=== PATIENT | male | born 1975 | race Caucasian/White ===

== ENCOUNTER 2021-12-24 11:10 | Emergency (ER) | payer BC, OTHER ==
[2021-12-24] MEDS ORDERED: Norflex 60 MG/2 ML IM ONE (11:45)
[2021-12-24] MEDS ORDERED: TORAdol 30 mg Injection IM ONE (11:45)
[2021-12-24] MEDS ORDERED: TORAdol 30 mg Injection ONE (11:50)
[2021-12-24] MEDS ORDERED: Norflex 60 MG/2 ML ONE (11:50)
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
[2021-12-24 12:20] VITALS: BP 155/85; PULSE 67; O2SAT 99
[2021-12-24 13:09] LABS: Appearance CLEAR (CLEAR); Bilirubin NEGATIVE (NEGATIVE); Dipstick done @ ? MAIN LAB; Glucose NEGATIVE (NEGATIVE); Ketones NEGATIVE (NEGATIVE); Nitrite NEGATIVE (NEGATIVE); Protein,Urine Dip NEGATIVE (Negative); RBC NEGATIVE Ery/ul (0-5); Specific Gravity 1.025 (1.005-1.025); Urobilinogen 0.2 mg/dL (0-1)
--- NOTE | 2021-12-24 18:57 | XRAY ---
Indication: Left flank pain. Multiple contiguous axial images obtained through the abdomen and pelvis without contrast using renal stone protocol. Comparison: August 04, 2009 Lung bases again demonstrates small left base calcified granuloma. No infiltrate or effusion. Heart not enlarged. Incidental left infrahilar calcified node. Again nonobstructing micro-calculus in each kidney, largest left mid kidney measuring 4 mm. Stomach is distended with food/fluid. Noncontrasted stomach and bowel loops nonobstructed mild diffuse scatter colonic fecal debris throughout. No free fluid/air. Remaining liver, gallbladder, pancreas, spleen, adrenal glands, kidneys, ureters, bladder, and aorta are unremarkable for noncontrast exam. Osseous structures intact. No ventral or inguinal hernias. Impression: 1. Nonobstructing micro-calculus bilaterally. 2. Incidental mild diffuse fecal stasis and old granulomatous disease. 3. Remaining CT abdomen/pelvis without contrast exam is negative. Comment: Preliminary interpretation made by [facility]. No critical discrepancy.
== END 2021-12-24 13:25 | disposition home or self-care (01) ==
LOC: ED 11:10
DX: S39.012A Strain of muscle, fascia and tendon of lower back, initial encounter (principal); X50.0XXA Overexertion from strenuous movement or load, initial encounter
CPT/HCPCS: 74176; 81015; 96372; 99284; J1885; J2360

== ENCOUNTER 2024-05-28 10:05 | Day surgery (SDC) | payer BC ==
[2024-05-28] MEDS: Lactated Ringers 1,000 ML IV SCH (10:00)
[2024-05-28] MEDS ORDERED: Lactated Ringers 1,000 ML IV ONE (10:20)
[2024-05-28 10:26] VITALS: O2SAT 96
[2024-05-28] MEDS ORDERED: Xylocaine-Mpf 2% 5 Ml Vial ONE (14:03)
[2024-05-28] MEDS ORDERED: Versed 2 MG/2 ML Injection ONE (14:03)
[2024-05-28] MEDS ORDERED: DIPRIVAN 200 MG/20 ML IV ONE (14:03)
[2024-05-28 14:41] VITALS: RESP 16; TEMP 97.7
[2024-05-28 14:46] VITALS: BP 102/62; PULSE 62
--- NOTE | 2024-05-29 08:54 | OP ---
SURGERY DATE/TIME: 05/28/2024 1406 - 1412 PREOPERATIVE DIAGNOSIS: Heartburn. POSTOPERATIVE DIAGNOSES: 1) Duodenitis. 2) Esophagitis. 3) Minimal gastritis. PROCEDURE: Esophagogastroduodenoscopy with biopsy. SURGEON: Emiliano Sams MD ANESTHESIA: IV anesthesia. PATIENT CONDITION: Stable. COMPLICATIONS: None. SPECIMENS: 1) Duodenum biopsy. 2) Antrum for H pylori biopsy. 3) Distal esophagus biopsy. INDICATIONS: Patient is a 48-year-old male who presents with symptoms of heartburn despite PPI. Discussion was had with the patient, and he elects to proceed with endoscopy. FINDINGS: 1) Mild erythematous duodenitis. 2) Minimal erythema in the stomach and esophagus with 2 folds of esophagitis. DESCRIPTION OF PROCEDURE AND FINDINGS: Patient was brought to the endoscopy suite. Routinely positioned and prepared. IV anesthesia induced by Anesthesia. The gastroscope was inserted and advanced to the third portion of the duodenum. Duodenum with just mild erythema and nodularity, biopsies for histology. Stomach just with minimal erythema. Biopsies taken of the antrum for H pylori. The distal esophagus shows mild esophagitis with just 2 folds of minimal mucosal disruption at the distal esophagus. Manager Convention biopsy taken. The stomach is suctioned out, and the scope is withdrawn. The patient tolerated the procedure well and was taken to Recovery in stable condition. RECOMMENDATIONS: Recommend PPI and add Carafate. Follow up in 2 to 4 weeks in the office. He also has this less than 1 cm pea-sized, probably lipoma in the left upper quadrant abdominal wall that is bothersome and that he desires excision for, so we will have to set that up at some point.
== END 2024-05-28 14:53 | disposition home or self-care (01) ==
LOC: SDC 10:05
PROVIDERS: ATTEND Surgery
DX: K20.90 Esophagitis, unspecified without bleeding (principal); R12 Heartburn; K29.80 Duodenitis without bleeding; K29.70 Gastritis, unspecified, without bleeding
CPT/HCPCS: J2250; J2704